=== PATIENT | female | born 2000 | race Caucasian/White ===

== ENCOUNTER 2021-08-29 03:36 | Emergency (ER) | payer OTHER ==
[2021-08-29] MEDS ORDERED: AUGMENTIN 875-1 EACH PO (05:48)
== END 2021-08-29 05:55 | disposition home or self-care (01) ==
LOC: FER 03:36
DX: J02.9 Acute pharyngitis, unspecified (principal); H66.91 Otitis media, unspecified, right ear; Z20.822 Contact with and (suspected) exposure to COVID-19
CPT/HCPCS: 87880; 99283; U0002